=== PATIENT | female | born 1995 | race Caucasian/White ===

== ENCOUNTER 2018-10-03 18:00 | Emergency (ER) | payer OTHER ==
[~2018-10-03] VITALS: Ht 160 cm; Wt 54.0 kg
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
--- NOTE | 2018-10-03 18:17 | NUR ---
LISSETTED OFFICER AT FOR INVESTIGATION.
[2018-10-03] MEDS ORDERED: IBUPROFEN 600 MG TABLET PO ONE ×2 (18:28→18:30)
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
[2018-10-03 19:19] LABS: APPEARANCE,URINE Clear (CLEAR); BILIRUBIN,URINE Negative (NEGATIVE); BLOOD, URINE Negative Ery/uL (NEGATIVE); COLOR,URINE Yellow (YELLOW); KETONES,URINE Negative (NEGATIVE); LEUKOCYTE ESTERASE ,URINE Small (NEGATIVE); NITRITE, URINE Negative (NEGATIVE); PH,URINE 7.5 (5.0-8.0); PROTEIN,URINE Negative (NEGATIVE); UGLUCOSE Negative (NEGATIVE); UROBILINOGEN,URINE 0.2 EU/dL (0.2)
--- NOTE | 2018-10-03 19:21 | NUR ---
XRAY AT BEDSIDE.
[2018-10-03 19:22] LABS: RBC,URINE 0-2 /HPF (0-2)
[2018-10-03 19:24] LABS: BACTERIA,URINE Many /HPF (None Seen); SQUAMOUS EPITHELIAL CELL,UR Moderate /HPF (None Seen)
--- NOTE | 2018-10-03 19:58 | NUR ---
Patient discharged to home in stable condition. Written and verbal after care instructions given. Patient verbalizes understanding of instruction. AAXO4. PT AMBULATED WITH STEADY GAIT.
[2018-10-03 19:59] VITALS: BP 124/86
== END 2018-10-03 20:01 | disposition home or self-care (01) ==
LOC: ER 18:04
DX: S20.211A Contusion of right front wall of thorax, initial encounter (principal); V09.9XXA Pedestrian injured in unspecified transport accident, initial encounter; W22.8XXA Striking against or struck by other objects, initial encounter; Y93.89 Activity, other specified; Y92.89 Other specified places as the place of occurrence of the external cause; Y99.8 Other external cause status
CPT/HCPCS: 71100; 81001; 84703; 87086; 99284; A4606; Z7610; 81000-TC